=== PATIENT | male | born 1965 | race Caucasian/White ===

== ENCOUNTER 2019-09-10 15:16 | Emergency (ER) | payer SELFPAY ==
[2019-09-10] MEDS ORDERED: SODIUM CHLORIDE 0.9% (FLUSH) 10 ML SYG IV PRN (15:27)
[2019-09-10] MEDS ORDERED: SODIUM CHLORIDE 0.9% 1000ML 1,000 ML IVS PRN (15:27)
[2019-09-10] MEDS ORDERED: ONDANSETRON INJ 4 MG/2 ML VIAL IV ONE (15:28)
[2019-09-10] MEDS ORDERED: SODIUM CHLORIDE 0.9% 1000ML 1,000 ML IVS ONE (15:28)
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
--- NOTE | 2019-09-10 15:55 | CT ---
Study: CT of the Head. Indication: Headache Technique: Axial CT images of the head were acquired without intravenous contrast. This exam was performed according to our departmental dose-optimization program, which includes automated exposure control, adjustment of the mA and/or kV according to patient size and/or use of iterative reconstruction technique. Comparison: None. Findings: No acute ischemia, acute hemorrhage, mass, mass effect, midline shift, or extra-axial fluid collection identified by CT. Ventricles are normal in configuration without hydrocephalus. Paranasal sinuses are adequately aerated. Mastoid air cells are adequately aerated. Osseous structures and soft tissues are unremarkable. Impression: No acute intracranial abnormality by CT. Electronically signed by: Nasir Peralta MD 09/10/2019 3:53 PM CDT
[2019-09-10 17:21] VITALS: BP 143/98; TEMP 98.6; O2SAT 96
== END 2019-09-10 17:17 | disposition home or self-care (01) ==
LOC: ER 15:16
DX: R51 Headache (principal); R11.2 Nausea with vomiting, unspecified; Z88.2 Allergy status to sulfonamides
CPT/HCPCS: 36415; 70450; 80053; 80307; 80320; 80329; 81001; 84484; 85025; 93005; J2405; J7030